=== PATIENT | male | born 1995 | race African-American/Black ===

== ENCOUNTER 2017-09-02 20:40 | Emergency (ER) | payer OTHER ==
[2017-09-02 20:53] VITALS: BP 126/61; PULSE 79; RESP 18; TEMP 99.5
--- NOTE | 2017-09-02 21:33 | ED ---
Skin/Abscess/FB HPI - General Chief complaint: Skin/Abscess/Foreign Body Stated complaint: skin problems on hand & feet Time Seen by Provider: 09/02/17 21:01 Source: patient, RN notes reviewed Mode of arrival: ambulatory Limitations: no limitations - History of Present Illness Initial comments: This is a 22-year-old male who presents to the emergency department with chief complaint of lesions on his palms and soles. Patient states that today his mother noticed that he had dark lesions on his palms. Patient states he did not notice because they are not painful or itchy. He states that he had an upper respiratory infection 2 weeks ago. He denies history of STD, recent genital or oral lesions or urethral discharge. He does state that he has a history of cold sores. He states that he is sexually active with other men, but has not had sexual intercourse since last summer. He states that he has a history of 3 sexual partners. He states that he has followed up with his family physician, Dr. Rivera and each time has been told that he has blood in his urine. He states he was supposed to follow up with a specialist but has yet to do so because he has been away at college. Patient denies any joint pain. Denies recent fevers or chills, chest pain or shortness of breath, abdominal pain, nausea or vomiting. - Related Data Home Medications Medication Instructions Recorded Confirmed Ascorbic Acid [Vitamin C] 1,000 mg PO DAILY 09/02/17 09/02/17 Allergies Allergy/AdvReac Type Severity Reaction Status Date / Time ibuprofen Allergy Unknown Verified 09/02/17 21:08 Review of Systems ROS Statement: Those systems with pertinent positive or pertinent negative responses have been documented in the HPI. ROS Other: All systems not noted in ROS Statement are negative. Past Medical History Past Medical History: No Reported History History of Any Multi-Drug Resistant Organisms: None Reported Past Surgical History: No Surgical Hx Reported Additional Past Surgical History / Comment(s): cyst removed from wrist Past Psychological History: Anxiety, Bipolar, Depression Smoking Status: Never smoker Past Alcohol Use History: None Reported Past Drug Use History: None Reported General Exam - General Exam Comments Initial Comments: General: Awake and alert, well-developed; in no apparent distress. Cousin is at bedside. HEENT: Head atraumatic, normocephalic. Pupils are equal, round and reactive to light. Extraocular movements intact. Oropharynx moist without erythema or exudate. No oral lesions noted. Neck: Supple. Normal ROM. Cardiovascular: Regular rate and rhythm. No murmurs, rubs or gallops. Chest symmetrical. Respiratory: Lungs clear to auscultation bilaterally. No wheezes, rales or rhonchi. Normal respiratory effort with no use of accessory muscles. Musculoskeletal: Normal ROM, no tenderness bilateral upper and lower extremities. Ambulating normally. Skin: [place], warm and dry. Brown circular macular lesions on palms and soles. No scaling noted. Neurological: Alert and oriented x3. CN II-XII grossly intact. Speech is fluent and answers are appropriate. No focal neuro deficits. Psychiatric: Normal mood and affect. No overt signs of depression or anxiety noted. Limitations: no limitations Course Vital Signs 09/02/17 20:50 Temperature 99.5 F Pulse Rate 79 Respiratory 18 Rate Blood Pressure 126/61 O2 Sat by Pulse 99 Oximetry Medical Decision Making - Medical Decision Making This is a 22-year-old male who presents to the emergency department with chief complaint of lesions on his palms and soles. On physical examination, there are dark circular macular lesions on patient's palms and soles. Patient states these or not painful or itchy. He states his mother noticed them today. Patient does state that he is a homosexual male but denies any history of STD. He denies any recent oral or genital lesions. Denies any urethral discharge. Differential diagnoses of these lesions include secondary syphilis. Patient does request STD testing. Testing for HIV, syphilis, Chlamydia and gonorrhea is pending. Vital signs are stable and patient is in no acute distress. This case was discussed with attending physician, Dr. Parsons who also evaluated the patient. Patient will be discharged home at this time. Disposition Clinical Impression: Skin lesions Disposition: HOME SELF-CARE Condition: Good Instructions: Sexually Transmitted Diseases (ED) Additional Instructions: Please follow up with primary care provider within 1-2 days. Return to emergency department if symptoms should worsen or any concerns arise. Is patient prescribed a controlled substance at d/c from ED?: No Referrals: Briana Rivera MD [Primary Care Provider] - 1-2 days Time of Disposition: 21:41
[2017-09-03 14:54] LABS: HIV AB P24 Non-Reactive (Non-Reactive); HIV P24 AG Non-Reactive (Non-Reactive)
[2017-09-04] MEDS ORDERED: PENICILLIN G BENZATHINE 1,200,000 UNIT/2 ML SYRINGE IM STA ×2 (12:13→12:14)
[2017-09-04 13:46] LABS: N. gonorrhoeae,PCR Negative (Neg,Equiv); Neisseria Source Urine
[2017-09-04 13:47] LABS: C. trachomatis,PCR Negative (Neg,Equiv); Chlamydia trachomatis Source Urine
== END 2017-09-02 21:45 | disposition home or self-care (01) ==
LOC: EC 20:40
DX: L98.9 Disorder of the skin and subcutaneous tissue, unspecified (principal); Z79.899 Other long term (current) drug therapy; Z88.6 Allergy status to analgesic agent
CPT/HCPCS: 36415; 86592; 86780; 87390; 87491; 87591; 99283

== ENCOUNTER → 2017-09-04 | Outpatient (CLI) | payer OTHER ==
[~2017-09-04] MED LIST: PENICILLIN G BENZATHINE 1,200,000 UNIT/2 ML SYRINGE IM ONE; PENICILLIN G BENZATHINE 1,200,000 UNIT/2 ML SYRINGE IM STA
== END | disposition home or self-care (01) ==
LOC: EC 14:11
PROVIDERS: ATTEND Pediatrics Adolescent Medicine
DX: Z53.9 Procedure and treatment not carried out, unspecified reason (principal)

== ENCOUNTER 2018-09-18 08:29 | Emergency (ER) | payer OTHER ==
[2018-09-18 08:33] VITALS: RESP 18
[2018-09-18] MEDS ORDERED: IBUPROFEN 600 MG STARTER PACK 4 TAB BTL PO STA (09:05)
[2018-09-18] MEDS ORDERED: cefTRIAXone 250 MG VIAL IM STA (09:05)
[2018-09-18] MEDS ORDERED: CYCLOBENZAPRINE 10MG STARTER 3 TAB BTL PO STA (09:05)
[2018-09-18] MEDS ORDERED: valACYclovir HCL 1,000 MG TABLET PO STA (09:06)
[2018-09-18] MEDS ORDERED: AZITHROMYCIN 500 MG TAB PO STA (09:06)
--- NOTE | 2018-09-18 09:11 | ED ---
General Adult HPI - General Chief complaint: Neck Pain/Injury Stated complaint: neck pain, cold sore in mouth Time Seen by Provider: 09/18/18 08:37 Source: patient, RN notes reviewed, old records reviewed Mode of arrival: ambulatory Limitations: no limitations - History of Present Illness Initial comments: Patient is a 23-year-old male recently came home from college, and today he complains of 2 months of neck muscle pain with bending his neck. He also states that he has had one week of a cold sore mouth. Patient reports history for STDs approximately one year ago after having a rash on his hands and was treated for secondary syphilis.. Patient states that he feels like a sore on his lip is painful. He states his ever had a sore on his lip like this before. Patient states that he has had no recent sexual partners, but has just kissed people. Patient has history of homosexual relationships. Patient states that he does have some mild dysuria. - Related Data Home Medications Medication Instructions Recorded Confirmed Ascorbic Acid [Vitamin C] 1,000 mg PO DAILY 09/02/17 09/02/17 Previous Rx's Medication Instructions Recorded valACYclovir [Valtrex] 2,000 mg PO BID 3 Days 09/18/18 Allergies Allergy/AdvReac Type Severity Reaction Status Date / Time ibuprofen Allergy Unknown Verified 09/18/18 08:33 Review of Systems ROS Statement: Those systems with pertinent positive or pertinent negative responses have been documented in the HPI. ROS Other: All systems not noted in ROS Statement are negative. Past Medical History Past Medical History: No Reported History History of Any Multi-Drug Resistant Organisms: None Reported Past Surgical History: No Surgical Hx Reported Additional Past Surgical History / Comment(s): cyst removed from wrist Past Psychological History: Anxiety, Bipolar, Depression Smoking Status: Never smoker Past Alcohol Use History: None Reported Past Drug Use History: None Reported General Exam - General Exam Comments Initial Comments: Well-appearing 23-year-old male. No significant distress. Limitations: no limitations General appearance: alert, in no apparent distress Head exam: Present: atraumatic, normocephalic, normal inspection Eye exam: Present: normal appearance, PERRL, EOMI. Absent: scleral icterus, conjunctival injection, periorbital swelling ENT exam: Present: normal exam, mucous membranes moist, other (Patient has evidence of an early cold sore, upper mid lip. Lip is cracked.) Neck exam: Present: normal inspection. Absent: tenderness, meningismus, lymphadenopathy Respiratory exam: Present: normal lung sounds bilaterally. Absent: respiratory distress, wheezes, rales, rhonchi, stridor Cardiovascular Exam: Present: regular rate, normal rhythm, normal heart sounds. Absent: systolic murmur, diastolic murmur, rubs, gallop, clicks GI/Abdominal exam: Present: soft, normal bowel sounds. Absent: distended, tenderness, guarding, rebound, rigid Extremities exam: Present: normal inspection, full ROM, normal capillary refill. Absent: tenderness, pedal edema, joint swelling, calf tenderness Back exam: Present: normal inspection Neurological exam: Present: alert, oriented X3, CN II-XII intact Psychiatric exam: Present: normal affect, normal mood Skin exam: Present: warm, dry, intact, normal color. Absent: rash Course Vital Signs 09/18/18 08:31 Temperature 98.5 F Pulse Rate 93 Respiratory 18 Rate Blood Pressure 135/95 O2 Sat by Pulse 98 Oximetry Medical Decision Making - Medical Decision Making Patient is a 23-year-old male recently getting back from college today with complaints of a sore over his lip. Also complains of 2 months of neck pain. Patient has some tenderness over the course cervical muscles. I discussed the Patient likely has a muscle strain should take Motrin Tylenol. We'll give the Patient a starter pack for Flexeril. Patient also reports that he has a history of syphilis treatment 1 year ago and is concerned for possibility of STDs causing his lesion over his lip. Appears to have a cold sore over the upper lip. Patient will be treated this time with Valtrex. He also complains of some mild dysuria. This time patient's urinalysis is positive for hematuria. Patient this time has no significant answers infection however with his complaint of dysuria no culture the urine for occluding gonorrhea and treat the Patient proactively with Rocephin and azithromycin. I discussed the patient's symptoms are of the lip swelling and sore likely from a cold sore and discussed to avoid sharing drinks and is seen until the lesion is clear. Discussed follow-up with his PCP. All questions answered and return parameters were discussed. - Lab Data Lab Results 09/18/18 Range/Units 09:20 Urine Color Yellow Urine Appearance Clear (Clear) Urine pH 6.5 (5.0-8.0) Ur Specific [place] 1.036 H (1.001-1.035) Urine Protein Trace H (Negative) Urine Glucose (UA) Negative (Negative) Urine Ketones Negative (Negative) Urine Blood Moderate H (Negative) Urine Nitrite Negative (Negative) Urine Bilirubin Negative (Negative) Urine Urobilinogen <2.0 (<2.0) mg/dL Ur Leukocyte Esterase Negative (Negative) Urine RBC 15 H (0-5) /hpf Urine WBC 2 (0-5) /hpf Ur Squamous Epith Cells 1 (0-4) /hpf Urine Bacteria Rare H (None) /hpf Urine Mucus Few H (None) /hpf Disposition Clinical Impression: Neck strain, Cold sore Disposition: HOME SELF-CARE Condition: Good Instructions (If sedation given, give patient instructions): Oral Herpes Simplex Virus Infections (ED), Cervical Strain (ED) Additional Instructions: Patient advised to take the medication as prescribed. Follow-up with your primary care doctor. Return to the emergency department if any alarming signs or symptoms occur. Prescriptions: valACYclovir [Valtrex] 2,000 mg PO BID 3 Days Is patient prescribed a controlled substance at d/c from ED?: No Referrals: Briana Rivera MD [Primary Care Provider] - 1-2 days Time of Disposition: 10:08
[2018-09-18 09:41] LABS: Appearance,Urine Clear (Clear); Bacteria,Urine Rare /hpf; Bilirubin,Urine Negative (Negative); Blood,Urine Moderate (Negative); Color,Urine Yellow; Glucose,Urine (UA) Negative (Negative); Ketones,Urine Negative (Negative); Leukocyte Esterase,Urine Negative (Negative); Mucus,Urine Few /hpf; Nitrite,Urine Negative (Negative); PH, Urine 6.5 (5.0-8.0); Protein,Urine Trace (Negative); RBC,Urine 15 /hpf (0-5); Specific Gravity,Urine 1.036 (1.001-1.035); Squamous Epithelial Cell,Urine 1 /hpf (0-4); Urobilinogen,Urine <2.0 mg/dL (<2.0); WBC,Urine 2 /hpf (0-5)
[2018-09-18 10:46] VITALS: BP 116/82; PULSE 75; TEMP 98
[2018-09-20 14:26] LABS: N. gonorrhoeae,PCR Negative (Neg,Equiv); Neisseria Source Urine
[2018-09-20 14:39] LABS: C. trachomatis,PCR Negative (Neg,Equiv); Chlamydia trachomatis Source Urine
== END 2018-09-18 10:45 | disposition home or self-care (01) ==
LOC: EC 08:29
DX: S16.1XXA Strain of muscle, fascia and tendon at neck level, initial encounter (principal); B00.1 Herpesviral vesicular dermatitis; R30.0 Dysuria; Z53.8 Procedure and treatment not carried out for other reasons; Z79.899 Other long term (current) drug therapy; Z88.6 Allergy status to analgesic agent
CPT/HCPCS: 81001; 87491; 87591; 87086; 99284; 96372; J0696

== ENCOUNTER 2018-11-02 17:08 | Emergency (ER) | payer OTHER ==
[2018-11-02 18:50] VITALS: BP 117/76; PULSE 69; RESP 16; TEMP 98.4
--- NOTE | 2018-11-02 19:35 | XR ---
EXAMINATION TYPE: XR cervical spine comp DATE OF EXAM: 11/02/2018 COMPARISON: None HISTORY: 23-year-old male with pain TECHNIQUE: 5 views FINDINGS: No predental space widening or prevertebral soft tissue swelling. Alignment is maintained. Disc inter spaces are preserved. No bony spondylotic neural foraminal narrowing seen on either side. Normal odon toid view. IMPRESSION: No prevertebral soft tissue swelling or malalignment. No significant bony neuroforaminal narrowing se en on either side.
--- NOTE | 2018-11-02 19:46 | ED ---
Neck Injury/Pain HPI - General Chief Complaint: Neck Pain/Injury Stated Complaint: re-check neck pain, tingling in arms Time Seen by Provider: 11/02/18 18:51 Mode of arrival: ambulatory Limitations: no limitations - History of Present Illness Initial Comments: 23-year-old male presenting today for chief complaint of left-sided neck pain. Patient states he has had left sided neck pain tingling down his arm. He states that he did fall about 7 months prior. 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 He states he feels these are contributing. Patient states he has had chronic neck pain for the past year however. He states his mother told to come to the ER for repeat x-ray. Patient denies complete loss of sensation he denies weakness of the upper extremity, he denies fever chills night sweats headache dizziness nausea vomiting or any other associated symptoms. Upon arrival patient appears well no signs of acute di stress. Patient appears well - Related Data Home Medications Medication Instructions Recorded Confirmed Ascorbic Acid [Vitamin C] 1,000 mg PO DAILY 09/02/17 09/02/17 Previous Rx's Medication Instructions Recorded valACYclovir [Valtrex] 2,000 mg PO BID 3 Days 09/18/18 Cyclobenzaprine [Flexeril] 10 mg PO TID PRN 7 Days #21 tab 11/02/18 Allergies Allergy/AdvReac Type Severity Reaction Status Date / Time ibuprofen Allergy Unknown Verified 11/02/18 18:50 Review of Systems ROS Statement: Those systems with pertinent positive or pertinent negative responses have been documented in the HPI. ROS Other: All systems not noted in ROS Statement are negative. Past Medical History Past Medical History: No Reported History History of Any Multi-Drug Resistant Organisms: None Reported Past Surgical History: No Surgical Hx Reported Additional Past Surgical History / Comment(s): cyst removed from wrist Past Psychological History: Anxiety, Bipolar, Depression Smoking Status: Never smoker Past Alcohol Use History: None Reported Past Drug Use History: None Reported General Exam - General Exam Comments Initial Comments: General: The patient is awake and alert, in no distress, and does not appear acutely ill. Eye: +3 mm pupils are equal, round and reactive to light, extra-ocular movements are intact. No nystagmus. There is normal conjunctiva bilaterally. No signs of icterus. Ears, nose, mouth and throat: There are moist mucous membranes and no oral lesions. Neck: The neck is supple, there is no tenderness or JVD. No midline tenderness to palpation of the cervical spine, paravertebral tenderness to palpation of the left side of neck. No pain to palpation of the scapula or shoulder joint. Cardiovascular: There is a regular rate and rhythm. No murmur, rub or gallop is appreciated. Respiratory: Lungs are clear to auscultation, respirations are non-labored, breath sounds are equal. No wheezes, stridor, rales, or rhonchi. Musculoskeletal: Normal ROM, no tenderness. Strength 5/5. Sensation intact. Radial pulses equal bilaterally 2+. Neurological: A&O x 3. CN II-XII intact, There are no obvious motor or sensory deficits. Coordination appears grossly intact. Speech is normal. Skin: Skin is warm and dry and no rashes or lesions are noted. Psychiatric: Cooperative, appropriate mood & affect, normal judgment. Limitations: no limitations Course Vital Signs 11/02/18 18:48 Temperature 98.4 F Pulse Rate 69 Respiratory 16 Rate Blood Pressure 117/76 O2 Sat by Pulse 96 Oximetry Medical Decision Making - Medical Decision Making 23yo male presenting today for neck pain on going for 1 year. Patient states he believes it work related. Patient states he had remote trauma from fall 7 months prior. Patient denies infectious symptoms. Pt afebrile appearing well on arrival today. no focal defitics. No weakness of the UE b/l, full sensation. At this time I feel patient is stable for discharge in satisfactory and follow-up with primary care provider. Since symptoms are still persistent recommended orthopedic surgery evaluation. Patient verbalized understanding of return parameters as well as care plan. Patient discharged appearing well Disposition Clinical Impression: Neck pain, Muscle strain Disposition: HOME SELF-CARE Condition: Good Instructions (If sedation given, give patient instructions): Cervical Sprain (ED) Additional Instructions: Please use medication as discussed. Please follow-up with family doctor in the next 2 days, and orthopedic surgery as discussed. Please return to emergency room if the symptoms increase or worsen or for any other concerns. Prescriptions: Cyclobenzaprine [Flexeril] 10 mg PO TID PRN 7 Days #21 tab PRN Reason: Muscle Spasm Is patient prescribed a controlled substance at d/c from ED?: No Referrals: Briana Rivera MD [Primary Care Provider] - 1-2 days Dakota Cardoza DO [Doctor of Osteopathic Medicine] - 1-2 days Time of Disposition: 19:44
== END 2018-11-02 20:09 | disposition home or self-care (01) ==
LOC: EC 17:08
DX: S16.1XXA Strain of muscle, fascia and tendon at neck level, initial encounter (principal); Z88.6 Allergy status to analgesic agent; X58.XXXA Exposure to other specified factors, initial encounter
CPT/HCPCS: 72050; 99283

== ENCOUNTER 2024-04-17 15:14 | Emergency (ER) | payer BC, OTHER ==
[2024-04-17 15:26] VITALS: RESP 18
--- NOTE | 2024-04-17 15:59 | ED ---
Male Urogenital HPI - General Chief complaint: Urogenital Stated complaint: Fever, headache Time Seen by Provider: 04/17/24 15:57 Source: patient, RN notes reviewed, old records reviewed Mode of arrival: ambulatory Limitations: no limitations - History of Present Illness Initial comments: Patient is a 28-year-old male presented to the ER for evaluation of genital rash. Patient has known HIV and states he follows up with an infectious disease specialist, Dr. Liriano. Patient reports he takes his medications as prescribed and had his levels checked on March 15 of this year and states they were in acceptable range. Patient reports for the past 2 weeks he has had a pruritic burning rash to his penis and scrotum. Patient was treated for herpes with Valtrex without relief. He has tried switching his underwear and hygiene changes without relief. Patient does state he was diagnosed with HIV in 2017 and he had syphilis and gonorrhea at that time. Patient's last sexual encounter was 5 months ago. He has not heard from sexual partner regarding any concern of STDs. He denies any penile discharge, dysuria, scrotal pain or swelling. No fevers. No abdominal pain or other complaints. - Related Data Home Medications Medication Instructions Recorded Confirmed Ascorbic Acid [Vitamin C] 1,000 mg PO DAILY 09/02/17 09/02/17 Previous Rx's Medication Instructions Recorded valACYclovir HCL [Valtrex] 2,000 mg PO BID 3 Days 09/18/18 Cyclobenzaprine [Flexeril] 10 mg PO TID PRN 7 Days #21 tab 11/02/18 Acyclovir [Zovirax] 400 mg PO TID 7 Days #21 tablet 04/17/24 Doxycycline [Vibramycin] 100 mg PO BID #14 capsule 04/17/24 Allergies Allergy/AdvReac Type Severity Reaction Status Date / Time ibuprofen Allergy Unknown Verified 04/17/24 15:17 Review of Systems ROS Statement: Those systems with pertinent positive or pertinent negative responses have been documented in the HPI. ROS Other: All systems not noted in ROS Statement are negative. Past Medical History Past Medical History: No Reported History Additional Past Medical History / Comment(s): HIV+ 2016/2017. HSV History of Any Multi-Drug Resistant Organisms: None Reported Past Surgical History: No Surgical Hx Reported Additional Past Surgical History / Comment(s): cyst removed from wrist Past Psychological History: Anxiety, Bipolar, Depression Smoking Status: Never smoker Past Alcohol Use History: None Reported Past Drug Use History: None Reported General Exam Limitations: no limitations General appearance: alert, in no apparent distress Respiratory exam: Present: normal lung sounds bilaterally. Absent: respiratory distress, wheezes, rales, rhonchi, stridor Cardiovascular Exam: Present: regular rate, normal rhythm, normal heart sounds. Absent: systolic murmur, diastolic murmur, rubs, gallop, clicks GI/Abdominal exam: Present: soft, normal bowel sounds. Absent: distended, tenderness, guarding, rebound, rigid exam: Present: circumcision, other (Multiple eroded/indurated papules on penile shaft, head and scrotum concerning of syphillis) Neurological exam: Present: alert, oriented X3, CN II-XII intact Skin exam: Present: warm, dry, intact, normal color. Absent: rash Course Vital Signs 04/17/24 04/17/24 15:17 18:16 Temperature 98.3 F 98.0 F Pulse Rate 109 H 96 Respiratory 18 18 Rate Blood Pressure 134/84 120/79 O2 Sat by Pulse 98 98 Oximetry - Reevaluation(s) Reevaluation #1: 04/17/24 18:17 Genital exam chaperoned by Yves Cortes LPN. Medical Decision Making - Medical Decision Making Was pt. sent in by a medical professional or institution (KALYN Santillan, ERECTOR OPERATOR, urgent c are, hospital, or penitentiary...) When possible be specific @ -No Did you speak to anyone other than the patient for history (EMS, parent, family, police, friend...)? What history was obtained from this source @ -No Did you review nursing and triage notes (agree or disagree)? Why? @ -I reviewed and agree with nursing and triage notes Were old charts reviewed (outside hosp., previous admission, EMS record, old EKG, old radiological studies, urgent care reports/EKG's, penitentiary records)? Report findings @ -No old charts were reviewed Differential Diagnosis (chest pain, altered mental status, abdominal pain women, abdominal pain men, vaginal bleeding, weakness, fever, dyspnea, syncope, headache, dizziness, GI bleed, back pain, seizure, CVA, palpatations, mental health, musculoskeletal)? @ -HPV, gonorrhea, chlamydia, UTI, syphilis... This list is not meant to be all-inclusive EKG interpreted by me (3pts min.). @ -None done X-rays interpreted by me (1pt min.). @ -None done CT interpreted by me (1pt min.). @ -None done U/S interpreted by me (1pt. min.). @ -None done What testing was considered but not performed or refused? (CT, X-rays, U/S, labs)? Why? @ -None What meds were considered but not given or refused? Why? @ -None Did you discuss the management of the patient with other professionals (professionals i.e. , PA, ERECTOR OPERATOR, lab, RT, psych nurse, social media strategist, courtesy car driver, teacher, activities officer, field nurse case manager)? Give summary @ -No Was smoking cessation discussed for >3mins.? @ -No Was critical care preformed (if so, how long)? @ -No Were there social determinants of health that impacted care today? How? (Homelessness, low income, unemployed, alcoholism, drug addiction, transportation, low edu. Level, literacy, decrease access to med. care, fpc, rehab)? @ -No Was there de-escalation of care discussed even if they declined (Discuss DNR or withdrawal of care, Hospice)? DNR status @ -No What co-morbidities impacted this encounter? (DM, HTN, Smoking, COPD, CAD, Cancer, CVA, ARF, Chemo, Hep., AIDS, mental health diagnosis, sleep apnea, morbid obesity)? @ -HIV Was patient admitted / discharged? Hospital course, mention meds given and route, prescriptions, significant lab abnormalities, going to OR and other pertinent info. @ -Discharge. 28-year-old male presenting to the ER for examination of genital rash. Patient in no signs of acute distress. Exam remarkable for multiple eroded/indurated lesions to penile shaft, head and scrotum. There is no penile discharge noted. Urinalysis along with urine gonorrhea, chlamydia, trichomonas and syphilis testing completed. Patient received IM penicillin G while in the ER as rash appears to be consistent with syphilis. Patient also received IM Rocephin and prescribed doxycycline and acyclovir for prophylactic treatment per patient request. Given patient's immunocompromise state, I wrote a prescription for repeat IM penicillin G dosing in 7 days. Patient stable for discharge. Strict return parameters discussed. Patient discharged in stable condition with follow-up to PCP. Patient verbally expressed understanding and agreement with care plan. Case discussed with ED attending, Dr. Barrett. Undiagnosed new problem with uncertain prognosis? @ -No Drug Therapy requiring intensive monitoring for toxicity (Heparin, Nitro, Insulin, Cardizem)? @ -No Were any procedures done? @ -No Diagnosis/symptom? @ -STA exposure/genital rash Acute, or Chronic, or Acute on Chronic? @ -Acute Uncomplicated (without systemic symptoms) or Complicated (systemic symptoms)? @ -Uncomplicated Side effects of treatment? @ -No Exacerbation, Progression, or Severe Exacerbation? @ -No Poses a threat to life or bodily function? How? (Chest pain, [place], [place], pneumonia, PE, COPD, DKA, ARF, appy, cholecystitis, CVA, Diverticulitis, Homicidal, Suicidal, threat to staff... and all critical care pts) @ -Yes, HIV is life-threatening. - Lab Data Lab Results 04/17/24 Range/Units 16:00 Urine Color Yellow Urine Appearance Clear (Clear) Urine pH 5.5 (5.0-8.0) Ur Specific [place] 1.042 H (1.001-1.035) Urine Protein Trace H (Negative) Urine Glucose (UA) Negative (Negative) Urine Ketones Negative (Negative) Urine Blood Moderate H (Negative) Urine Nitrite Negative (Negative) Urine Bilirubin Negative (Negative) Urine Urobilinogen <2.0 (<2.0) mg/dL Ur Leukocyte Esterase Small H (Negative) Urine RBC 39 H (0-5) /hpf Urine WBC 6 H (0-5) /hpf Ur Squamous Epith Cells 2 (0-4) /hpf Urine Mucus Moderate H (None) /hpf Disposition Clinical Impression: STD exposure, Rash of genitalia Disposition: HOME SELF-CARE Condition: Stable Instructions (If sedation given, give patient instructions): Sexually Transmitted Diseases (ED) Additional Instructions: Have repeat Penicillin dose in 7 days. Take medications as prescribed. Follow-up with PCP and infectious disease specialists. Return to the ER for any new or worsening symptoms. Prescriptions: Doxycycline [Vibramycin] 100 mg PO BID #14 capsule Acyclovir [Zovirax] 400 mg PO TID 7 Days #21 tablet Is patient prescribed a controlled substance at d/c from ED?: No Referrals: Briana Rivera MD [Primary Care Provider] - 1-2 days Time of Disposition: 17:59
[2024-04-17 16:26] LABS: Appearance,Urine Clear (Clear); Bilirubin,Urine Negative (Negative); Blood,Urine Moderate (Negative); Color,Urine Yellow; Glucose,Urine (UA) Negative (Negative); Ketones,Urine Negative (Negative); Leukocyte Esterase,Urine Small (Negative); Mucus,Urine Moderate /hpf; Nitrite,Urine Negative (Negative); PH, Urine 5.5 (5.0-8.0); Protein,Urine Trace (Negative); RBC,Urine 39 /hpf (0-5); Specific Gravity,Urine 1.042 (1.001-1.035); Squamous Epithelial Cell,Urine 2 /hpf (0-4); Urobilinogen,Urine <2.0 mg/dL (<2.0); WBC,Urine 6 /hpf (0-5)
[2024-04-17] MEDS: PENICILLIN G BENZATHINE 1,200,000 UNIT/2 ML SYRINGE IM STA (17:55)
[2024-04-17] MEDS: cefTRIAXone 1,000 MG VIAL (IM USE) IM STA (18:06)
[2024-04-17] MEDS: DOXYCYCLINE 100 MG CAP PO STA (18:06)
[2024-04-17 18:18] VITALS: BP 120/79; PULSE 96; TEMP 98
== END 2024-04-17 18:22 | disposition home or self-care (01) ==
LOC: EC 15:14
DX: Z21 Asymptomatic human immunodeficiency virus [HIV] infection status (principal); Z20.2 Contact with and (suspected) exposure to infections with a predominantly sexual mode of transmission; R21 Rash and other nonspecific skin eruption; Z88.8 Allergy status to other drugs, medicaments and biological substances
CPT/HCPCS: 36415; 81001; 87491; 87591; 86780; 99283; 96372; J0561; J0696; 86592